=== PATIENT | male | born 1980 | race Two or more races ===

== ENCOUNTER → 2017-09-06 | Outpatient (CLI) | payer OTHER ==
--- NOTE | 2017-09-06 15:32 | MR ---
EXAMINATION TYPE: MR shoulder RT wo con DATE OF EXAM: 09/06/2017 COMPARISON: NONE HISTORY: Right shoulder pain and limited movement for one year and 6 months. No inciting injury. TECHNIQUE: Multiplanar, multisequence imaging of the right shoulder is performed without contrast. FINDINGS: Rotator Cuff: There is minimal increased signal within the supraspinatus and infraspinatus tendons at the myotendin ous junction and insertional fibers compatible with mild tendinopathy. A low-grade partial-thickness 0.3 x 0.2 cm tear of the most anterior insertional fibers of the supraspinatus are also identified. M uscular signal and volume of the teres minor and subscapularis are unremarkable. Acromioclavicular Joint: Mild acromioclavicular arthropathy is demonstrated as small subchondral cyst s and capsular hypertrophy as well as tiny marginal osteophytes. There is no downsloping of acromion or impression upon the supraspinatus by the degenerative changes. Glenohumeral Joint: No evidence of joint space narrowing. Labrum: The labrum appears grossly intact given limitation of non-arthrogram study. Biceps Tendon: The long head of biceps is in normal location within bicipital groove. There is mild a ttenuation of the insertional fibers of the biceps in the intra-articular portion without tear sugges tive of mild biceps tendinosis. Bone marrow signal: No focal abnormal marrow signal is appreciated. Other: A small amount of fluid is seen within the subacromial/subdeltoid bursa suggestive of bursitis . IMPRESSION: 1. Small subcentimeter partial-thickness tear of the most anterior insertional fibers of the supraspi natus measuring 0.3 x 0.2 cm superimposed upon mild supraspinatus tendinopathy. 2. Mild infraspinatus and intra-articular portion of the biceps tendinopathy. 3. Mild acromioclavicular arthropathy. No impression upon the supraspinatus. 4. Findings suggestive of subacromial/subdeltoid bursitis.
== END | disposition home or self-care (01) ==
LOC: RADMRIMAIN 13:12
PROVIDERS: ATTEND Orthopaedic Surgery
DX: M75.111 Incomplete rotator cuff tear or rupture of right shoulder, not specified as traumatic (principal); M12.811 Other specific arthropathies, not elsewhere classified, right shoulder; M75.91 Shoulder lesion, unspecified, right shoulder

== ENCOUNTER 2018-04-19 00:49 | Emergency (ER) | payer OTHER ==
[2018-04-19 00:57] VITALS: BP 137/83; PULSE 87; RESP 18; TEMP 98.5
[2018-04-19] MEDS ORDERED: LIDOCAINE VISCOUS 2% 15 ML CUP MUCOUS MEM ONE (01:31)
[2018-04-19] MEDS ORDERED: MORPHINE SULFATE 4 MG/ML SYRINGE IM STA ×2 (01:31→02:09)
[2018-04-19] MEDS ORDERED: PENICILLIN VK 500MG STARTER 4 TAB BTL PO STA (01:31)
--- NOTE | 2018-04-19 01:33 | ED ---
ENT HPI - General Chief complaint: Dental/Oral Stated complaint: Dental Abscess/swelling Time Seen by Provider: 04/19/18 01:26 Source: patient Mode of arrival: ambulatory Limitations: no limitations - History of Present Illness Initial comments: 37-year-old male patient presents the emergency department today for evaluation of left upper dental pain. Patient states that pain started approximately 3 days ago. Patient states he woke up today with left-sided facial swelling. Patient denies any fever or chills with states that the pain is severe. Patient was seen by his primary care physician earlier today and started on amoxicillin. Was also given a prescription for [place]. Patient states he took a [place] but it is not helping. Patient denies any trismus or difficulty swallowing. Patient did have an episode of vomiting this morning related to the severe pain. Patient does have an appointment with a dentist in a couple of days. Patient denies any recent rash, fever, chills, shortness breath, chest pain, abdominal pain, diarrhea, constipation, back pain, numbness, tingling, dizziness, weakness, hematuria, dysuria, urinary urgency, urinary frequency, headache, visual changes, or any other complaints. - Related Data Previous Rx's Medication Instructions Recorded Penicillin V Potassium [Pen Vee K] 500 mg PO Q6H #40 tablet 04/19/18 Allergies Allergy/AdvReac Type Severity Reaction Status Date / Time bupropion [From Wellbutrin] Allergy Diarrhea Verified 04/19/18 00:58 naproxen [From Aleve] Allergy Rash/Hives Verified 04/19/18 00:58 Review of Systems ROS Statement: Those systems with pertinent positive or pertinent negative responses have been documented in the HPI. ROS Other: All systems not noted in ROS Statement are negative. Past Medical History Past Medical History: No Reported History History of Any Multi-Drug Resistant Organisms: None Reported Past Surgical History: Back Surgery Past Psychological History: No Psychological Hx Reported Smoking Status: Current every day smoker Past Alcohol Use History: Occasional Past Drug Use History: None Reported General Exam Limitations: no limitations General appearance: alert, other (This is a well-developed, well-nourished adult male patient in moderate distress related to pain. Vital signs upon presentation are temperature 98.5F, pulse 87, respirations 18, blood pressure 137/83, pulse ox 100% on room air.) Eye exam: Present: normal appearance, PERRL, EOMI. Absent: scleral icterus, conjunctival injection, periorbital swelling ENT exam: Present: mucous membranes moist, TM's normal bilaterally, other ( Patient has left sided facial swelling, patient has left upper dental abscess. Patient has broken tooth #14.). Absent: normal exam, normal oropharynx Neck exam: Present: normal inspection. Absent: tenderness, meningismus, lymphadenopathy Respiratory exam: Present: normal lung sounds bilaterally. Absent: respiratory distress, wheezes, rales, rhonchi, stridor Cardiovascular Exam: Present: regular rate, normal rhythm, normal heart sounds. Absent: systolic murmur, diastolic murmur, rubs, gallop, clicks Neurological exam: Present: alert, oriented X3, CN II-XII intact Psychiatric exam: Present: normal affect, normal mood Skin exam: Present: warm, dry, intact, normal color. Absent: rash Course Vital Signs 04/19/18 00:56 Temperature 98.5 F Pulse Rate 87 Respiratory 18 Rate Blood Pressure 137/83 O2 Sat by Pulse 100 Oximetry Procedures - Incision & Drainage Indication: Dental abscess Site: oral Size (cm): 1 Anesthetic Used: lidocaine 2% (Viscous) Amount (mLs): 5 Needle Aspiration Performed?: Yes (18-gauge needle used) I&D Drainage Obtained: Pus, Blood Patient Tolerated Procedure: well Medical Decision Making - Medical Decision Making 37-year-old male patient presented to the emergency department today for evaluation of left upper dental abscess. Physical examination did reveal a 1 cm abscess to the left upper dentition above tooth #14. Did drain abscess using 18-gauge needle. Patient tolerated the procedure well. Patient does Felicia taking amoxicillin given by his primary care physician. He took 3 doses today. He does have a dentist appointment. He is urged to keep this appointment. Return parameters were discussed in detail. He verbalizes understanding and agrees with this plan. Disposition Clinical Impression: Dental abscess Disposition: HOME SELF-CARE Condition: Good Instructions: Dental Abscess (ED) Additional Instructions: Take medications as directed. Follow-up with your primary care physician for recheck in 1-2 days. Follow up with dentistry as soon as possible. Return here immediately for any new, worsening, or concerning symptoms. Please follow up with the [facility] dental clinic. [facility] [place] [address]. Phone number for new patients or [phone] for existing patients. [facility]. Must pay for x-rays then services are free. Call for an appoitnment. Prescriptions: Penicillin V Potassium [Pen Vee K] 500 mg PO Q6H #40 tablet Is patient prescribed a controlled substance at d/c from ED?: No Referrals: Shawn Garcia MD [Primary Care Provider] - 1-2 days Time of Disposition: 02:03
[2018-04-19] MEDS ORDERED: KETOROLAC 30 MG/ML 1 ML VIAL IM STA (02:09)
== END 2018-04-19 02:32 | disposition home or self-care (01) ==
LOC: EC 00:49
DX: K04.7 Periapical abscess without sinus (principal); F17.200 Nicotine dependence, unspecified, uncomplicated; Z88.6 Allergy status to analgesic agent; Z88.8 Allergy status to other drugs, medicaments and biological substances
CPT/HCPCS: 41800; 96372; 99283

== ENCOUNTER 2018-04-20 13:28 | Emergency (ER) | payer OTHER ==
[2018-04-20 13:50] VITALS: RESP 18
[2018-04-20] MEDS ORDERED: MORPHINE SULFATE 4 MG/ML SYRINGE IM STA ×2 (14:55→16:14)
[2018-04-20] MEDS ORDERED: KETOROLAC 30 MG/ML 1 ML VIAL IM STA (14:56)
[2018-04-20] MEDS ORDERED: LIDOCAINE VISCOUS 2% 15 ML CUP MUCOUS MEM ONE (14:56)
--- NOTE | 2018-04-20 15:16 | ED ---
General Adult HPI - General Chief complaint: Dental/Oral Stated complaint: dental Time Seen by Provider: 04/20/18 14:37 Source: patient, RN notes reviewed Mode of arrival: ambulatory Limitations: no limitations - History of Present Illness Initial comments: 37-year-old male presents to the emergency department for a chief complaint of tooth pain x 5 days. Patient states it is his left upper jaw. Patient states it is worsened by hot and cold. Patient was seen by a primary care physician 2 days ago and started on amoxicillin and [place] 2 days ago. Patient states the [place] is not working for the pain. Patient states he was seen here 2 days ago for it and swelling and pain does seem to be improving since that time. At that time abscess was drained over the tooth. However patient does have persistent pain and is here for pain relief. Patient states he saw the dentist today who referred him to an oral surgeon that he will see in [place]. Patient denies any trismus or difficulty swallowing. Patient denies any fevers or chills at home. Patient denies any neck stiffness or swelling. Patient denies any pain in the left eye. Patient states he has started to feel better since starting the amoxicillin 2 days ago but still wants something for pain here. Patient has no other complaints at this time including shortness of breath, chest pain, abdominal pain, nausea or vomiting, headache, or visual changes. - Related Data Home Medications Medication Instructions Recorded Confirmed HYDROcodone/APAP 7.5-325MG [[place] 1 tab PO Q6HR 04/20/18 04/20/18 7.5-325] Allergies Allergy/AdvReac Type Severity Reaction Status Date / Time bupropion [From Wellbutrin] Allergy Diarrhea Verified 04/20/18 13:50 naproxen [From Aleve] Allergy Rash/Hives Verified 04/20/18 13:50 Review of Systems ROS Statement: Those systems with pertinent positive or pertinent negative responses have been documented in the HPI. ROS Other: All systems not noted in ROS Statement are negative. Past Medical History Past Medical History: No Reported History History of Any Multi-Drug Resistant Organisms: None Reported Past Surgical History: Back Surgery Past Psychological History: No Psychological Hx Reported Smoking Status: Current every day smoker Past Alcohol Use History: Occasional Past Drug Use History: None Reported General Exam Limitations: no limitations General appearance: alert, in no apparent distress Head exam: Present: atraumatic, normocephalic, normal inspection Eye exam: Present: normal appearance, PERRL, EOMI. Absent: scleral icterus, conjunctival injection, periorbital swelling, periorbital tenderness ENT exam: Present: TM's normal bilaterally (Tympanic membranes normal bilaterally), normal external ear exam, other (Minimal swelling noted of the left side of the face. Swelling is localized. Patient is able to open jaw and close jaw without any difficulty. Oropharynx is patent.). Absent: normal oropharynx (Patient is missing tooth 14. There is a small abscess evident above the area.) Neck exam: Present: normal inspection, full ROM. Absent: tenderness, meningismus, lymphadenopathy Respiratory exam: Present: normal lung sounds bilaterally. Absent: respiratory distress, wheezes, rales, rhonchi, stridor Cardiovascular Exam: Present: regular rate, normal rhythm, normal heart sounds. Absent: systolic murmur, diastolic murmur, rubs, gallop, clicks Neurological exam: Present: alert, oriented X3, CN II-XII intact Psychiatric exam: Present: normal affect, normal mood Skin exam: Present: warm, dry, intact, normal color. Absent: rash Course Vital Signs 04/20/18 13:48 Temperature 98.4 F Pulse Rate 77 Respiratory 18 Rate Blood Pressure 121/69 O2 Sat by Pulse 100 Oximetry Medical Decision Making - Medical Decision Making 37-year-old male presents for dental pain 5 days. Patient was seen by primary care 2 days ago and given amoxicillin. He also presented to the emergency room in 2 days ago for pain relief where abscess was drained. Patient saw dentist today who referred him to oral surgeon. Patient presents today for pain relief. He states it is actually improving with the amoxicillin but it is still painful in the [place] he was prescribed isn't helping. Patient has also been taking Motrin. No difficulty swallowing or trismus. No radiating pain. No neck swelling or neck stiffness. There is mild swelling of the left side of the face. On exam of the oropharynx tooth 14 is absent. There is a small abscess above the tooth. This was numbed with viscous lidocaine and incised with an 18-gauge needle. No purulent material expelled. Patient was also given morphine and Toradol for pain. He will continue to take Motrin at home and will add extra strength Tylenol and continue to ice the area. He will follow up with oral surgeon. Patient aware to return if he has any fevers or chills, worsening swelling, or any other worsening or concerning symptoms. Patient was given morphine and Toradol here in the emergency department. He states that is what helped his pain last time. He is not driving home. Disposition Clinical Impression: Tooth abscess Disposition: HOME SELF-CARE Condition: Good Instructions: Dental Abscess (ED) Additional Instructions: Please continue amoxicillin as prescribed by primary care. Please continue Motrin for pain relief. He may add Tylenol to pain regimen. Continue to ice the area. Attended your appointment with oral surgeon. Follow-up with primary care in 1-2 days. Return to the emergency department if you have any worsening symptoms such as fevers or chills, increased swelling, or any other worsening or concerning symptoms. Is patient prescribed a controlled substance at d/c from ED?: No Referrals: Shawn Garcia MD [Primary Care Provider] - 1-2 days Time of Disposition: 15:25
[2018-04-20 16:42] VITALS: BP 120/78; PULSE 76; TEMP 98.1
== END 2018-04-20 16:40 | disposition home or self-care (01) ==
LOC: EC 13:28
DX: K04.7 Periapical abscess without sinus (principal); F17.200 Nicotine dependence, unspecified, uncomplicated; Z88.6 Allergy status to analgesic agent; Z88.8 Allergy status to other drugs, medicaments and biological substances; Z79.891 Long term (current) use of opiate analgesic
CPT/HCPCS: 99283; 41800; 96372 ×3; J2270; J1885

== ENCOUNTER 2018-06-14 15:41 | Emergency (ER) | payer OTHER ==
[2018-06-14] MEDS ORDERED: ACETAMINOPHEN TAB 500 MG TAB PO STA (16:05)
--- NOTE | 2018-06-14 16:12 | ED ---
General Adult HPI - General Chief complaint: Extremity Problem,Nontraumatic Stated complaint: Hand injury Time Seen by Provider: 06/14/18 15:59 Source: patient, RN notes reviewed Mode of arrival: ambulatory Limitations: no limitations - History of Present Illness Initial comments: Patient is a 37-year-old male who presents to the emergency department with complaints of right hand pain that started 3 days ago. He reports that he was doing yard work involving leaf blowing and using a chainsaw and the pain started afterwards. He reports that he is having trouble closing his fist and that the area is swollen. He has been taking ibuprofen for pain; last dose was yesterday. Denies any prior hand injuries. Patient denies any recent trauma, fever, chills, shortness of breath, chest pain, back pain, abdominal pain, nausea or vomiting, numbness or tingling, headaches or visual changes, or any other complaints. - Related Data Home Medications Medication Instructions Recorded Confirmed HYDROcodone/APAP 7.5-325MG [[place] 1 tab PO Q6HR 04/20/18 04/20/18 7.5-325] Previous Rx's Medication Instructions Recorded Ibuprofen [Motrin] 600 mg PO Q6HR PRN #40 day 06/14/18 Allergies Allergy/AdvReac Type Severity Reaction Status Date / Time bupropion [From Wellbutrin] Allergy Diarrhea Verified 06/14/18 15:54 naproxen [From Aleve] Allergy Rash/Hives Verified 06/14/18 15:54 Review of Systems ROS Statement: Those systems with pertinent positive or pertinent negative responses have been documented in the HPI. ROS Other: All systems not noted in ROS Statement are negative. Past Medical History Past Medical History: No Reported History History of Any Multi-Drug Resistant Organisms: None Reported Past Surgical History: Back Surgery Past Psychological History: No Psychological Hx Reported Smoking Status: Current every day smoker Past Alcohol Use History: Occasional Past Drug Use History: None Reported General Exam Limitations: no limitations General appearance: alert, in no apparent distress Head exam: Present: atraumatic, normocephalic Eye exam: Present: normal appearance Respiratory exam: Present: normal lung sounds bilaterally Cardiovascular Exam: Present: regular rate, normal rhythm, other (Radial pulses palpable and strong bilaterally.) Extremities exam: Present: normal inspection, tenderness (Tenderness to palpation over the right middle of palm and dorsum of hand. ), normal capillary refill, other (Limitation of right hand finger flexion.) Neurological exam: Present: alert, oriented X3 Psychiatric exam: Present: normal affect, normal mood Skin exam: Present: warm, dry Course Vital Signs 06/14/18 15:52 Temperature 98.4 F Pulse Rate 86 Respiratory 20 Rate Blood Pressure 129/83 O2 Sat by Pulse 99 Oximetry Medical Decision Making - Medical Decision Making Patient is a 37-year-old male with complaints of hand pain. X-ray is negative for fracture or dislocation. There is no erythema, significant swelling, or fevers. This is likely tendinitis. Patient reports that he is NOT allergic to ibuprofen and that he has been taking it at home without any issues. He would like a prescription for ibuprofen. Case discussed in detail with attending physician Dr. Copeland. Disposition Clinical Impression: Tendinitis Disposition: HOME SELF-CARE Condition: Good Instructions: Tendinitis (ED) Additional Instructions: Follow up with PCP in 2 days. Return to emergency department if symptoms worsen or any other concerns. Prescriptions: Ibuprofen [Motrin] 600 mg PO Q6HR PRN #40 day PRN Reason: Pain Is patient prescribed a controlled substance at d/c from ED?: No Referrals: Shawn Garcia MD [Primary Care Provider] - 1-2 days Time of Disposition: 17:19
--- NOTE | 2018-06-14 16:36 | XR ---
Right hand HISTORY: Right hand pain 3 views of the right hand Bone mineralization, joint spaces and alignment are maintained. There is no fracture or dislocation. Small ossific density present at the level of the proximal interphalangeal joint of the third digit i s well-corticated and not felt likely to be acute laterally. No significant soft tissue swelling. IMPRESSION: Correlate for point tenderness proximal interphalangeal joint third digit. No acute fract ure or dislocation is suspected.
[2018-06-14 17:44] VITALS: BP 157/84; PULSE 68; RESP 18; TEMP 98
== END 2018-06-14 17:20 | disposition home or self-care (01) ==
LOC: EC 15:41
DX: M77.9 Enthesopathy, unspecified (principal); F17.200 Nicotine dependence, unspecified, uncomplicated; Z79.891 Long term (current) use of opiate analgesic; Z79.899 Other long term (current) drug therapy; Z88.6 Allergy status to analgesic agent; Z88.8 Allergy status to other drugs, medicaments and biological substances
CPT/HCPCS: 99283

== ENCOUNTER 2018-07-24 11:54 | Emergency (ER) | payer OTHER ==
[2018-07-24 12:32] VITALS: BP 131/86; PULSE 82; RESP 18; TEMP 98.2
--- NOTE | 2018-07-24 12:48 | XR ---
EXAMINATION TYPE: XR foot complete RT DATE OF EXAM: 07/24/2018 COMPARISON: None HISTORY: Pain across metatarsals TECHNIQUE: Three-view right foot FINDINGS: No acute fractures are evident. Metatarsal cuneiform alignment appears normal. Joint spaces appear preserved. Soft tissues are unremarkable. Follow-up exam can be performed 7-10 days from acute trauma for continued pain. IMPRESSION: 1. Normal three-view right foot
--- NOTE | 2018-07-24 14:13 | ED ---
Lower Extremity Injury HPI - General Chief Complaint: Extremity Injury, Lower Stated Complaint: foot injury Time Seen by Provider: 07/24/18 13:45 Source: patient, RN notes reviewed Mode of arrival: ambulatory Limitations: no limitations - History of Present Illness Initial Comments: 38-year-old male presents to the emergency Department with chief complaint of right foot pain. Patient states that he kicked a log that was frozen to the ground last night. Patient states he was wearing shoes. Patient complains of bilateral foot pain. Patient denies any paresthesias. Patient denies any other injuries. Patient had no prior fractures. - Related Data Previous Rx's Medication Instructions Recorded Ibuprofen [Motrin] 600 mg PO Q8HR PRN #30 tab 07/24/18 Allergies Allergy/AdvReac Type Severity Reaction Status Date / Time bupropion [From Wellbutrin] Allergy Diarrhea Verified 07/24/18 12:30 naproxen [From Aleve] Allergy Rash/Hives Verified 07/24/18 12:30 Review of Systems ROS Statement: Those systems with pertinent positive or pertinent negative responses have been documented in the HPI. ROS Other: All systems not noted in ROS Statement are negative. Past Medical History Past Medical History: No Reported History History of Any Multi-Drug Resistant Organisms: None Reported Past Surgical History: Back Surgery Past Psychological History: No Psychological Hx Reported Smoking Status: Current every day smoker Past Alcohol Use History: Occasional Past Drug Use History: None Reported General Exam Limitations: no limitations General appearance: alert, in no apparent distress Head exam: Present: atraumatic, normocephalic, normal inspection Neck exam: Present: normal inspection. Absent: tenderness, meningismus, lymphadenopathy Respiratory exam: Present: normal lung sounds bilaterally. Absent: respiratory distress, wheezes, rales, rhonchi, stridor Cardiovascular Exam: Present: regular rate, normal rhythm, normal heart sounds. Absent: systolic murmur, diastolic murmur, rubs, gallop, clicks Extremities exam: Present: other (Tenderness to the right frontal lateral aspect with no obvious deformity no ecchymosis nontender digits, there is no malleoli tenderness) Course Vital Signs 07/24/18 12:30 Temperature 98.2 F Pulse Rate 82 Respiratory 18 Rate Blood Pressure 131/86 O2 Sat by Pulse 99 Oximetry Medical Decision Making - Medical Decision Making 38-year-old male presented for right foot injury. X-rays were reviewed no acute fracture. Patient is right foot contusion. Ibuprofen will be started. Return parameters were discussed. Disposition Clinical Impression: Contusion of right foot Disposition: HOME SELF-CARE Condition: Stable Instructions: Foot Contusion (ED) Additional Instructions: Please return to the Emergency Department if symptoms worsen or any other concerns. Prescriptions: Ibuprofen [Motrin] 600 mg PO Q8HR PRN #30 tab PRN Reason: Pain Is patient prescribed a controlled substance at d/c from ED?: No Referrals: Timmy Scott MD [STAFF PHYSICIAN] - 1-2 days Time of Disposition: 14:13
[2018-07-24] MEDS ORDERED: traMADol 50 MG STARTER PACK 3 TAB BTL PO STA (14:26)
== END 2018-07-24 14:37 | disposition home or self-care (01) ==
LOC: EC 11:54
DX: S90.31XA Contusion of right foot, initial encounter (principal); F17.200 Nicotine dependence, unspecified, uncomplicated; Z98.890 Other specified postprocedural states; Z88.6 Allergy status to analgesic agent; Z88.8 Allergy status to other drugs, medicaments and biological substances; W22.8XXA Striking against or struck by other objects, initial encounter; Y92.009 Unspecified place in unspecified non-institutional (private) residence as the place of occurrence of the external cause
CPT/HCPCS: 99283

== ENCOUNTER 2018-07-30 18:56 | Emergency (ER) | payer OTHER ==
[2018-07-30 19:10] VITALS: PULSE 97; TEMP 98.2
[2018-07-30] MEDS ORDERED: ACET/COD 300 MG/30 MG STARTER PACK 6 TAB BTL PO STA (20:08)
[2018-07-30] MEDS ORDERED: PENICILLIN VK 500MG STARTER 4 TAB BTL PO STA (20:09)
--- NOTE | 2018-07-30 20:13 | ED ---
ENT HPI - General Chief complaint: Dental/Oral Stated complaint: dental pain Time Seen by Provider: 07/30/18 19:08 Source: patient, RN notes reviewed, old records reviewed Mode of arrival: ambulatory Limitations: no limitations - History of Present Illness Initial comments: Patient is a 38-year-old male who presents emergency department today with left upper molar dental pain. Patient reports that he has had swelling over the side of his jaw one day. He denies trismus. Denies fevers. He has a missing tooth #14. He's had a history of abscesses around this area. Patient states that he has had no follow-up with the dental clinic at this time due to his insurance. - Related Data Previous Rx's Medication Instructions Recorded Ibuprofen [Motrin] 600 mg PO Q8HR PRN #30 tab 07/24/18 Acetaminophen-Codeine 300-30mg 1 tab PO Q6H PRN 3 Days #12 tablet 07/30/18 [Tylenol w/codeine #3] Penicillin V Potassium [Pen Vee K] 500 mg PO QID #40 tablet 07/30/18 Allergies Allergy/AdvReac Type Severity Reaction Status Date / Time bupropion [From Wellbutrin] Allergy Diarrhea Verified 07/30/18 19:10 naproxen [From Aleve] Allergy Rash/Hives Verified 07/30/18 19:10 Review of Systems ROS Statement: Those systems with pertinent positive or pertinent negative responses have been documented in the HPI. ROS Other: All systems not noted in ROS Statement are negative. Past Medical History Past Medical History: No Reported History History of Any Multi-Drug Resistant Organisms: None Reported Past Surgical History: Back Surgery Past Psychological History: No Psychological Hx Reported Smoking Status: Current every day smoker Past Alcohol Use History: Occasional Past Drug Use History: None Reported General Exam - General Exam Comments Initial Comments: (Ages 38-year-old male. He appears in moderate discomfort. Limitations: no limitations General appearance: alert, in no apparent distress Head exam: Present: atraumatic, normocephalic, normal inspection Eye exam: Present: normal appearance, PERRL, EOMI. Absent: scleral icterus, conjunctival injection, periorbital swelling ENT exam: Present: normal exam, mucous membranes moist. Absent: normal oropharynx (Missing tooth #14. Patient has evidence of palpable abscess on the upper gum area. Not draining at this time.) Neck exam: Present: normal inspection. Absent: tenderness, meningismus, lymphadenopathy Respiratory exam: Present: normal lung sounds bilaterally. Absent: respiratory distress, wheezes, rales, rhonchi, stridor Cardiovascular Exam: Present: regular rate, normal rhythm, normal heart sounds. Absent: systolic murmur, diastolic murmur, rubs, gallop, clicks GI/Abdominal exam: Present: soft, normal bowel sounds. Absent: distended, tenderness, guarding, rebound, rigid Extremities exam: Present: normal inspection, full ROM, normal capillary refill. Absent: tenderness, pedal edema, joint swelling, calf tenderness Back exam: Present: normal inspection Neurological exam: Present: alert, oriented X3, CN II-XII intact Psychiatric exam: Present: normal affect, normal mood Skin exam: Present: warm, dry, intact, normal color. Absent: rash Course Vital Signs 07/30/18 07/30/18 19:08 20:18 Temperature 98.2 F Pulse Rate 97 97 Respiratory 18 20 Rate Blood Pressure 114/73 125/77 O2 Sat by Pulse 97 99 Oximetry Medical Decision Making - Medical Decision Making Patient is a 38-year-old male presents today with left-sided upper jaw pain and swelling. Patient had evidence of abscess tooth #14. There is anesthetized with lidocaine. And then a 23-gauge needle was used. Approximately 2 mL of purulent fluid was removed. Patient will be started on Pen-Vee K, given a prescription for Tylenol 3. Patient was upset that he is not receive IV morphine. Discussed that is not appropriate for dental pain. Patient has been advised to follow-up with dental clinic. All questions answered and return parameters were discussed. Disposition Clinical Impression: Dental abscess Disposition: HOME SELF-CARE Condition: Good Instructions: Dental Abscess (ED) Additional Instructions: [facility] [id number] [place] [address] [phone] (existing clients only) For new clients: [phone] 1st consult: $50 (includes Xrays) Usually 30% less then private dentist for visits after. [employer] Have to pay $50 for Xrays anmd rest is covered. [phone] Prescriptions: Acetaminophen-Codeine 300-30mg [Tylenol w/codeine #3] 1 tab PO Q6H PRN 3 Days # 12 tablet PRN Reason: Pain Penicillin V Potassium [Pen Vee K] 500 mg PO QID #40 tablet Is patient prescribed a controlled substance at d/c from ED?: Yes If prescribed controlled substance>3 days was MAPS reviewed?: Prescribed <3 Days If opioid is for acute pain is fill amount 7 days or less?: Yes If Rx opioid, was Start Talking consent form obtained?: Yes Referrals: None,Stated [Primary Care Provider] - 1-2 days Time of Disposition: 20:15
[2018-07-30 20:19] VITALS: BP 125/77; RESP 20
== END 2018-07-30 20:21 | disposition home or self-care (01) ==
LOC: EC 18:56
DX: K04.7 Periapical abscess without sinus (principal); F17.200 Nicotine dependence, unspecified, uncomplicated; Z88.8 Allergy status to other drugs, medicaments and biological substances; Z88.6 Allergy status to analgesic agent
CPT/HCPCS: 41800; 99283